=== PATIENT | female | born 1965 | race Asian ===

== ENCOUNTER 2017-02-16 19:59 | Emergency (ER) | payer SELFPAY ==
[2017-02-16] MEDS ORDERED: ONDANSETRON HCL INJ/PF 4 MG/2 ML SDV IV ONE (20:23)
--- NOTE | 2017-02-16 20:26 | ER Document Report ---
ED Medical Screen (RME) - General Chief Complaint: Vomiting Stated Complaint: VOMITING BLOOD,EPIGASTRIC PAIN TRAVEL OUTSIDE OF THE [place] IN LAST 30 DAYS: Yes - [place] - HPI Notes: 02/16/17 20:23 Patient with a history of Boerhaave's coming in for epigastric pain vomiting pink possible blood. Multiple family members in the room continued to request to give her water. Explained patient will be nothing by mouth. 02/16/17 20:25 Patient anxious - Related Data Allergies/Adverse Reactions: shrimp Allergy (Verified 02/16/17 20:09) Past Medical History Renal/ Medical History: Denies: Hx Peritoneal Dialysis Review of Systems - Review of Systems Gastrointestinal: Abdominal pain, Vomiting Physical Exam - Vital signs Vitals: Temp Pulse Resp BP Pulse Ox 97.6 F 65 16 187/108 H 98 02/16/17 20:04 02/16/17 20:04 02/16/17 20:04 02/16/17 20:04 02/16/17 20:04 - Respiratory Respiratory status: No respiratory distress Chest status: Nontender Breath sounds: Normal Chest palpation: Normal Course - Vital Signs Vital signs: Temp Pulse Resp BP Pulse Ox 97.6 F 65 16 187/108 H 98 02/16/17 20:04 02/16/17 20:04 02/16/17 20:04 02/16/17 20:04 02/16/17 20:04
[2017-02-16] MEDS ORDERED: PANTOPRAZOLE SODIUM 40 MG VIAL IV ONE (20:41)
[2017-02-16] MEDS ORDERED: LORAZEPAM INJ 2 MG/1 ML VIAL IV ONE (20:41)
--- NOTE | 2017-02-16 21:44 | ER Document Report ---
ED General - General Chief Complaint: Vomiting Stated Complaint: VOMITING BLOOD,EPIGASTRIC PAIN Notes: She is a 51-year-old female with past medical history of prior esophageal perforation who presents with 4 episodes of vomiting a pink colored vomitus. Family was concerned the patient could be having a recurrence of esophageal perforation so they brought her to the emergency department. Her is sick with the same symptoms. Patient at time of assessment denies any focal abdominal pain, chest pain, or shortness of breath. She admits to feeling very anxious. She notes that she has a dull, constant, throbbing headache that has been getting gradually worse throughout the day. She states she's had very similar headaches in the past. Nothing is new or different about this headache today. She denies trying anything to treat her symptoms. Nothing worsens or symptoms. She has not seen a primary care doctor regarding today's concerns. TRAVEL OUTSIDE OF THE [place] IN LAST 30 DAYS: Yes - [place] - Related Data Allergies/Adverse Reactions: shrimp Allergy (Verified 02/16/17 20:09) Past Medical History - General Information source: Patient - Social History Smoking Status: Never Smoker Chew tobacco use (# tins/day): No Frequency of alcohol use: None Drug Abuse: None Lives with: Spouse/Significant other Family History: Reviewed & Not Pertinent Patient has suicidal ideation: No Patient has homicidal ideation: No Renal/ Medical History: Denies: Hx Peritoneal Dialysis Surgical Hx: Negative Review of Systems - Review of Systems Notes: Constitutional: Negative for fever. HENT: Negative for sore throat. Eyes: Negative for visual changes. Cardiovascular: Negative for chest pain. Respiratory: Negative for shortness of breath. Gastrointestinal: Negative for abdominal pain, positive for vomiting Genitourinary: Negative for dysuria. Musculoskeletal: Negative for back pain. Skin: Negative for rash. Neurological: Negative for headaches, weakness or numbness. 10 point ROS negative except as marked above and in HPI. Physical Exam - Vital signs Vitals: Temp Pulse Resp BP Pulse Ox 97.6 F 65 16 187/108 H 98 02/16/17 20:04 02/16/17 20:04 02/16/17 20:04 02/16/17 20:04 02/16/17 20:04 Interpretation: Hypertensive Notes: PHYSICAL EXAMINATION: GENERAL: Anxious but in no distress. HEAD: Atraumatic, normocephalic. EYES: Pupils equal round and reactive to light, extraocular movements intact, sclera anicteric, conjunctiva are normal. ENT: nares patent, oropharynx clear without exudates. Moderately dry mucous membranes. NECK: Normal range of motion, supple without lymphadenopathy LUNGS: Breath sounds clear to auscultation bilaterally and equal. No wheezes rales or rhonchi. HEART: Regular rate and rhythm without murmurs ABDOMEN: Soft, nontender, normoactive bowel sounds. No guarding, no rebound. No masses appreciated. EXTREMITIES: Normal range of motion, no pitting or edema. No cyanosis. NEUROLOGICAL: No focal neurological deficits. Moves all extremities spontaneously and on command. PSYCH: Anxious SKIN: Warm, Dry, normal turgor, no rashes or lesions noted. Course - Re-evaluation Re-evalutation: 02/16/17 21:42 Patient is a 51-year-old female who presents with 2 episodes of vomiting today that were described as being "frothy with a tinge of pink". No gross blood was visualized. 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 At time of my assessment, patient overall appears very anxious but is otherwise non-toxic in appearance. Vitals within normal limits. She has no focal findings on exam to suggest recurrence of Boerhaave's. Will obtain labs, chest x-ray, provide anxiolysis and analgesia and reassess. 02/16/17 23:27 Laboratories unremarkable including a gastric occult which was negative for blood. Chest x-ray does not demonstrate any evidence of perforation. Repeat abdominal exam remains benign without any focal right upper quadrant epigastric tenderness. Patient does not have any chest pain or shortness of breath. She has not had any further vomiting. She has tolerated oral intake. Patient had initially complained of a headache which family states is her baseline headache and was gradual in onset and got progressively worse. I do not suspect an acute subarachnoid hemorrhage.At this time will discharge with return precautions and follow-up recommendations. Verbal discharge instructions given a the bedside and opportunity for questions given. Medication warnings reviewed. Patient is in agreement with this plan and has verbalized understanding of return precautions and the need for primary care follow-up in the next 24-72 hours. - Vital Signs Vital signs: Temp Pulse Resp BP Pulse Ox 97.6 F 65 22 H 114/67 98 02/16/17 20:04 02/16/17 20:04 02/16/17 20:56 02/16/17 23:32 02/16/17 23:32 - Laboratory Result Diagrams: 02/16/17 21:05 02/16/17 21:05 Laboratory results interpreted by me: 02/16/17 02/16/17 21:05 21:05 WBC 10.6 H Glucose 114 H ALT 65 H Alkaline Phosphatase 153 H Total Protein 8.3 H - Diagnostic Test Radiology reviewed: Image reviewed, Reports reviewed Radiology results interpreted by me: 02/17/17 03:13 Chest x-ray: No free air, or pneumothorax - EKG Interpretation by Me Additional EKG results interpreted by me: 02/17/17 03:13 Sinus rhythm. Rate 69. No ST elevations or depressions. QTC mildly prolonged at 502. Discharge - Discharge Clinical Impression: Vomiting Qualifiers: Vomiting type: unspecified Vomiting Intractability: non-intractable Nausea presence: with nausea Qualified Code(s): R11.2 - Nausea with vomiting, unspecified Condition: Good Disposition: HOME, SELF-CARE Additional Instructions: You have been seen in the Emergency Department (ED) today for nausea and vomiting. Your work up today has not shown a clear cause for your symptoms. Your laboratories and chest x-ray do not suggest a recurrence of your esophageal perforation. Follow up with your doctor as soon as possible regarding today's emergent visit and your symptoms of nausea. Return to the Emergency Department (ED) if you develop abdominal pain, bloody vomiting, bloody diarrhea, if you are unable to tolerate fluids due to vomiting , or if you develop other symptoms that concern you.
[2017-02-16 21:48] LABS: PROTHROMBIN TIME 12.8 SEC (11.4-15.4)
[2017-02-16 21:50] LABS: ALANINE AMINOTRANSFERASE 65 U/L (9-52); ALBUMIN 4.7 g/dL (3.5-5.0); ALKALINE PHOSPHATASE 153 U/L (38-126); ASPARTATE AMINO TRANSFERASE 36 U/L (14-36); BILIRUBIN,DIRECT 0.2 mg/dL (0.0-0.4); BILIRUBIN,TOTAL 0.7 mg/dL (0.2-1.3); BLOOD UREA NITROGEN 14 mg/dL (7-20); CALCIUM 10.1 mg/dL (8.4-10.2); CHLORIDE 100 mmol/L (98-107); CREATININE RESULT 0.68 mg/dL (0.52-1.25); GLUCOSE 114 mg/dL (75-110); LIPASE 165.4 U/L (23-300); NEONATAL BILIRUBIN RESULT 0.5 mg/dL (0.1-1.1); TOTAL PROTEIN 8.3 g/dL (6.3-8.2)
[2017-02-16 21:53] LABS: ANION GAP 16 (5-19); CARBON DIOXIDE 26 mmol/L (22-30); SODIUM 142.4 mmol/L (137-145)
[2017-02-16 21:54] LABS: ABSOLUTE EOSINOPHILS # (AUTO) 0.4 10^3/uL (0.0-0.6); ABSOLUTE MONOCYTES (AUTO) 0.8 10^3/uL (0.1-1.4); ABSOLUTE NEUT (AUTO) 7.4 10^3/uL (1.7-8.2); BASOPHILS % (AUTO) 0.2 % (0-2); EOSINOPHILS % (AUTO) 3.9 % (0-6); HEMATOCRIT 39.5 % (36.0-47.0); HEMOGLOBIN 13.7 g/dL (12.0-15.5); HGB HCT DIFFERENCE 1.6; MEAN CORPUSCULAR HEMOGLOBIN 28.5 pg (27.0-33.4); MEAN CORPUSCULAR HGB CONC 34.7 g/dL (32.0-36.0); MEAN CORPUSCULAR VOLUME 82 fl (80-97); MONOCYTES % (AUTO) 7.2 % (3-13); RED CELL DISTRIBUTION WIDTH 12.7 % (11.5-14.0); SEGMENTED NEUTROPHILS % (AUTO) 69.7 % (42-78); WHITE BLOOD COUNT 10.6 10^3/uL (4.0-10.5)
[2017-02-16] MEDS ORDERED: NORMAL SALINE 1000 ML 1,000 ML IV ONE (22:13)
[2017-02-16 23:34] VITALS: BP 114/67
--- NOTE | 2017-02-16 23:56 | EKG REPORT ---
SEVERITY:- ABNORMAL ECG - SINUS RHYTHM NONSPECIFIC T ABNORMALITIES, ANTERIOR LEADS BORDERLINE PROLONGED QT INTERVAL : Confirmed by: All Stauffer 16-Feb-2017 23:55:35
== END 2017-02-16 23:41 | disposition home or self-care (01) ==
LOC: ER 19:59
DX: R11.2 Nausea with vomiting, unspecified (principal); R51 Headache; F41.9 Anxiety disorder, unspecified; Z91.013 Allergy to seafood; Z87.19 Personal history of other diseases of the digestive system
CPT/HCPCS: 93005; 99284; 96361; 96374; 96375; 86900; 86901; 36415; 86850; 83690; 85025; 85610; 82271; 80053; 84484; 71010; 93010; J2060; S0164; J2405; J7030